=== PATIENT | female | born 1975 | race Caucasian/White ===

== ENCOUNTER 2021-08-31 00:30 | Inpatient (IN) | payer MEDICAID ==
[~2021-08-31] VITALS: Ht 170.2 cm; Wt 72.7 kg
[2021-08-31] MEDS ORDERED: ondansetron/PF 4mg/2ml inj IV ONE ×3 (02:05→04:50)
[2021-08-31] MEDS ORDERED: morphine 4 MG/ML inj SYRINge IV ONE ×2 (02:05→04:20)
[2021-08-31] MEDS ORDERED: normal saline 1000ml 1,000 ML IV ONE ×2 (02:05→04:30)
[2021-08-31 02:17] LABS: URINE HCG NEGATIVE (NEG)
[2021-08-31 02:47] LABS: CLARITY,URINE CLOUDY (Clear); COLOR,URINE YELLOW (Yellow); GLUCOSE, URINE NEGATIVE (Neg); KETONES,URINE 40 mg/dl (Neg); LEUKOCYTE ESTERASE ,URINE NEGATIVE (Neg); NITRITES, URINE NEGATIVE (Neg); OCCULT BLOOD,URINE NEGATIVE (Neg); PROTEIN,URINE 30 mg/dl (Neg); UROBILINOGEN,URINE 0.2 E.U/dL (0.2-1.0)
[2021-08-31 02:49] LABS: UA COLLECTION TYPE CLN CATCH MIDSTREAM
[2021-08-31 02:57] LABS: CAL OXALATE CRYSTALS 4+ /HPF (NEGATIVE)
[2021-08-31 02:58] LABS: AMORPHOUS URATES 4+; BACTERIA,URINE NONE SEEN /HPF (Neg); RBC,URINE NONE SEEN /HPF (0-2); WBC,URINE 0-4 /HPF (0-4)
[2021-08-31 02:59] LABS: MUCUS STRANDS MODERATE /LPF (Neg); SQUAMOUS EPITHELIAL CELL,UR MODERATE /LPF (FEW)
[2021-08-31 03:18] LABS: BASOPHILS % (AUTO) 0.9 % (0-1); EOSINOPHILS % (AUTO) 0.1 % (0-6); HEMATOCRIT 37.3 % (35.0-45.0); HEMOGLOBIN 12.5 g/dl (12.0-16.0); LYMPHOCYTES % (AUTO) 20.7 % (21-51); MEAN CORPUSCULAR HEMOGLOBIN 32.7 PG (27.0-31.0); MEAN CORPUSCULAR HGB CONC 33.5 g/dL (33.0-36.5); MEAN CORPUSCULAR VOLUME 97.7 FL (78-98); MONOCYTES # (AUTO) 0.4 X10'3 (0-0.9); NEUTROPHILS # (AUTO) 3.5 X10'3 (1.8-7.7); NEUTROPHILS % (AUTO) 69.3 % (42-75); PLATELET COUNT 272 X10'3 (140-440); RED BLOOD COUNT 3.82 X10'6 (4.20-5.60); RED CELL DISTRIBUTION WIDTH 14.8 % (11.5-14.5)
[2021-08-31 03:27] LABS: ALANINE AMINOTRANSFERASE 23 U/L (12-78); ALBUMIN 3.8 G/DL (3.4-5.0); ALBUMIN/GLOBULIN RATIO 1.1 (1.1-1.5); ALKALINE PHOSPHATASE 80 IU/L (46-116); ANION GAP 22 (8-16); ASPARTATE AMINO TRANSFERASE 19 U/L (10-37); BILIRUBIN,DIRECT 0.2 MG/DL (0-0.3); BILIRUBIN,TOTAL 0.7 MG/DL (0.1-1.0); BLOOD UREA NITROGEN 10 MG/DL (7-18); BUN/CREATININE RATIO 12.2 (6.6-38.0); CALCIUM 9.1 MG/DL (8.5-10.1); CHLORIDE 96 MMOL/L (99-107); CREATININE 0.82 MG/DL (0.40-0.90); GLUCOSE 311 MG/DL (70-104); LIPASE < 50 U/L (73-393); POTASSIUM 3.5 MMOL/L (3.5-5.1); SODIUM 134 MMOL/L (135-145); TOTAL CARBON DIOXIDE 16.5 MMOL/L (24-32); TOTAL PROTEIN 7.4 G/DL (6.4-8.2); eGFR 75 ML/MIN
[2021-08-31] MEDS ORDERED: iohexol 300mg/ml 100ml inj. ONE (03:42)
[2021-08-31] MEDS ORDERED: potassium Cl 40MEQ/1/2NS 520ml 520 ML IV PRN ×2 (04:35)
[2021-08-31] MEDS ORDERED: normal saline 1000ml 1,000 ML IV SCH (04:35)
[2021-08-31] MEDS ORDERED: sodium phosphate inj. 30 MMOL in dextrose 5%-water 250 ML IV PRN (04:35)
[2021-08-31] MEDS ORDERED: insulin regular, human U-100 3ml vial - multi-dose IV PRN (04:35)
[2021-08-31] MEDS ORDERED: potassium Cl 20 mEq SR tablet PO PRN ×4 (04:35→05:15)
[2021-08-31] MEDS ORDERED: potassium CL 20mEq in D5-1/2NS 1,000 ML IV PRN (04:35)
[2021-08-31] MEDS ORDERED: sodium bicarbonate (8.4%) inj. 100 MEQ in dextrose 5% water 500ml 500 ML IV PRN (04:35)
[2021-08-31] MEDS ORDERED: sodium phosphate inj. 15 MMOL in dextrose 5%-water 250 ML IV PRN (04:35)
[2021-08-31] MEDS ORDERED: sodium bicarbonate (8.4%) inj. 50 MEQ in dextrose 5% water 500ml 250 ML IV PRN (04:35)
[2021-08-31] MEDS ORDERED: Neutra Phos packet PO PRN (04:35)
[2021-08-31] MEDS: Insulin Reg/NS 100units/100mL 100 ML IV SCH ×2 (04:35→08:32)
[2021-08-31] MEDS: normal saline 1000ml 1,000 ML IV SCH ×6 (05:05→22:46)
[2021-08-31] MEDS ORDERED: magnesium 4gm in 100ml NS 100 ML IV PRN (05:15)
[2021-08-31] MEDS ORDERED: magnesium hydroxide 30ml (MOM) UD suspension PO PRN (05:15)
[2021-08-31] MEDS ORDERED: potassium CL 10mEq/100ml bag 100 ML IV PRN (05:15)
[2021-08-31] MEDS ORDERED: magnesium 2GM in 50ml NS 50 ML IV PRN (05:15)
[2021-08-31] MEDS ORDERED: magnesium Cl slow-release 64mg tablet PO PRN (05:15)
[2021-08-31] MEDS ORDERED: ondansetron inj. 24 MG in normal saline 250ml IV soln 228 ML IV SCH (05:40)
[2021-08-31] MEDS ORDERED: labetalol 20mg/4ml (5mg/ml) syringe IV ONE (05:50)
--- NOTE | 2021-08-31 06:30 | NUR ---
PER [employer]EIGN EXCHANGE POSITION CLERK RN NO INSULIN DRIP TO BE STARTED ON PT ORDERS FOR 3L OF FLUID AND IV INSULIN TO BE PLACED BY DR. KELLEY
--- NOTE | 2021-08-31 06:44 | NUR ---
BSG 342
--- NOTE | 2021-08-31 07:00 | NUR ---
ATTEMPTED TO CALL DR. KELLEY WITH NO ANSWER
--- NOTE | 2021-08-31 07:28 | NUR ---
DR. JAUREGUI PAGED FOR PT'S BS 342 AND NO ORDERS FOR INSULIN
[2021-08-31] MEDS: K and/or MAG REPLACEMENT MC SCH ×2 (08:00→19:06)
[2021-08-31] MEDS ORDERED: K and/or MAG REPLACEMENT MC SCH (08:00)
[2021-08-31] MEDS: docusate sod 100mg capsule PO SCH ×2 (08:00→19:34)
[2021-08-31] MEDS: heparin, porcine 5000 units/ml vial SQ SCH ×2 (08:00→19:33)
--- NOTE | 2021-08-31 08:15 | NUR ---
SPOKE WITH DR. JAUREGUI ORDERS TO START INSULIN DRIP GIVEN
[2021-08-31 10:51] LABS: ALBUMIN 3.6 G/DL (3.4-5.0); ANION GAP 17 (8-16); BLOOD UREA NITROGEN 7 MG/DL (7-18); CALCIUM 8.2 MG/DL (8.5-10.1); CHLORIDE 98 MMOL/L (99-107); CREATININE 0.87 MG/DL (0.40-0.90); GLUCOSE 262 MG/DL (70-104); MAGNESIUM 1.7 MG/DL (1.5-2.4); POTASSIUM 3.3 MMOL/L (3.5-5.1); SODIUM 137 MMOL/L (135-145); TOTAL CARBON DIOXIDE 22.3 MMOL/L (24-32); eGFR 70 ML/MIN
[2021-08-31] MEDS ORDERED: FERR325T29 PO (11:21)
[2021-08-31] MEDS ORDERED: PANT40TA54 PO (11:21)
[2021-08-31] MEDS ORDERED: LISI10TA27 PO (11:21)
[2021-08-31] MEDS ORDERED: LEVO88TA70 PO (11:21)
[2021-08-31] MEDS ORDERED: FOLI0.4T6 PO (11:21)
[2021-08-31] MEDS ORDERED: LAMO200T10 PO (11:21)
[2021-08-31] MEDS ORDERED: DULO60CA65 PO (11:21)
[2021-08-31 17:43] LABS: ALANINE AMINOTRANSFERASE 22 U/L (12-78); ALBUMIN 3.4 G/DL (3.4-5.0); ALKALINE PHOSPHATASE 78 IU/L (46-116); ANION GAP 9 (8-16); ASPARTATE AMINO TRANSFERASE 21 U/L (10-37); BILIRUBIN,TOTAL 0.4 MG/DL (0.1-1.0); BLOOD UREA NITROGEN 5 MG/DL (7-18); CALCIUM 8.5 MG/DL (8.5-10.1); CHLORIDE 103 MMOL/L (99-107); CREATININE 0.71 MG/DL (0.40-0.90); GLUCOSE 183 MG/DL (70-104); POTASSIUM 3.9 MMOL/L (3.5-5.1); SODIUM 137 MMOL/L (135-145); TOTAL CARBON DIOXIDE 25.3 MMOL/L (24-32); TOTAL PROTEIN 6.9 G/DL (6.4-8.2); eGFR 89 ML/MIN
--- NOTE | 2021-08-31 18:08 | NUR ---
PER DR BETTENCOURT CONTINUE INSULIN DRIP UNTIL MIDNIGHT SEND ANOTHER CMP IS ANION GAP IN RANGE DC INSULIN DRIP PER DR BETTENCOURT RESCHEDULE PTS HOME BP MEDICATION TO NOW
[2021-08-31] MEDS ORDERED: lisinopril 10 MG tablet PO ONE (18:10)
[2021-08-31] MEDS: morphine 2 MG/ML inj. syringe IV PRN ×2 (19:32→22:47)
[2021-08-31] MEDS: ferrous sulfate 325mg tablet PO SCH (19:33)
[2021-08-31] MEDS: duloxetine 30mg CAPSULE.DR PO SCH (19:33)
[2021-08-31] MEDS ORDERED: dextrose ORAL solution 15 GM/59 ML bottle PO PRN (21:25)
[2021-08-31] MEDS ORDERED: glucagon, human recombinant 1mg kit SUBCUT PRN (21:25)
[2021-08-31] MEDS ORDERED: dextrose 50%-water 50ml dispensing syringe IV PRN ×2 (21:25)
[2021-08-31] MEDS ORDERED: MESSAGE TO PHARMACY PO ONE (21:25)
--- NOTE | 2021-08-31 21:49 | NUR ---
22g IV in LUE infiltrated. Cannula removed. Area directly underneath IV site swollen, soft, non tender. Verbal order from MD to stop insulin, Dextrose, and to start NS at 100 ml/hr and glycemic protocol.
[2021-08-31 22:30] VITALS: BP 175/105
[2021-08-31] MEDS: enalaprilat dihydrate 2.5mg/2ml vial IV PRN (22:46)
--- NOTE | 2021-09-01 00:06 | NUR ---
PT ADMITTED TO UNIT W/ ZOFRAN DRIP. ZOFRAN CONTINUED PER PROTOCOL. PT WAS ORDERED NS AT 100ML/HR BUT NO IV ACCESS WAS ABLE TO BE INITIATED DUE TO PT BEING A HARD STICK. PO FLUIDS ENCOURAGED. WAS INFORMED AND HAD NO NEW ORDERS. PT CURRENTLY IN BED RESTING. A/OX4 TO STIMULI. RESP EVEN AND NONLABORED W/ EQUAL CHEST EXPANSION BILATERALLY ON ROOM AIR. HEART SOUNDS NORMAL TO AUSCULTATION, S1/S2 NOTED, TACHY. BP ELEVATED AND PRN HTN MANAGEMENT MEDICATION ADMINISTERED ORDERED. PT C/O PAIN ALSO AT 9/10 TO ABD AND PRN PAIN MANAGEMENT MEDICATION ADMINISTERED. MRSA OF NARES SWAB COLLECTED AND TAKEN TO LAB. ALL ABD QUADRANTS NORMOACTIVE X4. ABD SOFT, LOOSE SKIN NOTED. SKIN INTACT W/ BLANCHABLE REDNESS NOTED TO JOHN ANUS. REDNESS AND DRYNESS NOTED TO BILATERAL ELBOWS. NO S/S OF ACUTE DISTRESS NOTED. WILL CONTINUE TO OBSERVE.
[2021-09-01] MEDS: morphine 2 MG/ML inj. syringe IV PRN ×5 (02:19→22:19)
[2021-09-01 02:30] VITALS: BP 107/72
[2021-09-01 06:00] VITALS: BP 190/99
[2021-09-01 06:53] LABS: BASOPHILS % (AUTO) 0.5 % (0-1); EOSINOPHILS % (AUTO) 0.4 % (0-6); HEMATOCRIT 40.1 % (35.0-45.0); HEMOGLOBIN 13.2 g/dl (12.0-16.0); LYMPHOCYTES # (AUTO) 1.4 X10'3 (1.1-4.8); LYMPHOCYTES % (AUTO) 28.7 % (21-51); MEAN CORPUSCULAR HEMOGLOBIN 32.7 PG (27.0-31.0); MEAN CORPUSCULAR VOLUME 99.2 FL (78-98); MONOCYTES # (AUTO) 0.4 X10'3 (0-0.9); MONOCYTES % (AUTO) 7.2 % (2-12); NEUTROPHILS # (AUTO) 3.2 X10'3 (1.8-7.7); NEUTROPHILS % (AUTO) 63.2 % (42-75); PLATELET COUNT 248 X10'3 (140-440); RED BLOOD COUNT 4.04 X10'6 (4.20-5.60); RED CELL DISTRIBUTION WIDTH 15.1 % (11.5-14.5)
[2021-09-01 07:13] LABS: ALANINE AMINOTRANSFERASE 17 U/L (12-78); ALBUMIN 3.5 G/DL (3.4-5.0); ALBUMIN/GLOBULIN RATIO 0.9 (1.1-1.5); ALKALINE PHOSPHATASE 84 IU/L (46-116); ANION GAP 16 (8-16); ASPARTATE AMINO TRANSFERASE 25 U/L (10-37); BILIRUBIN,TOTAL 0.7 MG/DL (0.1-1.0); BLOOD UREA NITROGEN 6 MG/DL (7-18); CHLORIDE 98 MMOL/L (99-107); CREATININE 0.75 MG/DL (0.40-0.90); GLUCOSE 380 MG/DL (70-104); POTASSIUM 4.1 MMOL/L (3.5-5.1); SODIUM 134 MMOL/L (135-145); TOTAL CARBON DIOXIDE 19.9 MMOL/L (24-32); TOTAL PROTEIN 7.3 G/DL (6.4-8.2); eGFR 84 ML/MIN
[2021-09-01] MEDS: normal saline 1000ml 1,000 ML IV SCH ×2 (07:25→18:00)
[2021-09-01] MEDS: K and/or MAG REPLACEMENT MC SCH ×2 (08:00→20:00)
[2021-09-01] MEDS: enalaprilat dihydrate 2.5mg/2ml vial IV PRN ×2 (08:04→14:46)
[2021-09-01] MEDS: levoTHYROXINE 88mcg tablet PO SCH (08:09)
[2021-09-01] MEDS: ferrous sulfate 325mg tablet PO SCH ×2 (08:10→19:11)
[2021-09-01] MEDS: docusate sod 100mg capsule PO SCH ×2 (08:10→19:11)
[2021-09-01] MEDS: duloxetine 30mg CAPSULE.DR PO SCH ×2 (08:10→19:11)
[2021-09-01] MEDS: lisinopril 10 MG tablet PO SCH (08:10)
[2021-09-01] MEDS: pantoprazole 40mg Tablet.DR PO SCH (08:11)
[2021-09-01] MEDS: folic acid 1mg tablet PO SCH (08:11)
[2021-09-01] MEDS: lamoTRIgine 100mg tablet PO SCH (08:11)
[2021-09-01] MEDS: heparin, porcine 5000 units/ml vial SQ SCH ×2 (08:13→19:12)
[2021-09-01] MEDS: insulin Lispro (HumaLOG) vial - multi-dose SQ SCH ×3 (09:28→22:32)
[2021-09-01] MEDS: ondansetron/PF 4mg/2ml inj IV PRN ×2 (09:29→19:11)
--- NOTE | 2021-09-01 10:09 | NUR ---
Patient in room PCU 3012. I have received report from Jorge JENSEN and had the opportunity to ask questions and assume patient care.
[2021-09-01 11:00] VITALS: BP 107/76
--- NOTE | 2021-09-01 11:59 | NUR ---
Initial: Pt admitted w/ DKA per EMR, also has hx of DKA. 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 Provided pt w/ written and verbal DM education w/ RD contact info. Encouraged pt to further discuss w/ MD regarding managing insulin. Pt currently on Clear liquid diet pending PO documentation. Recommend advancing to CCHO diet as tolerated per MD. No nutrition intervention implemented at this time, will continue to monitor. Recs: 1. Advance as medically indicated to CCHO diet 2. Monitor need for ONS 3. Bowel care per rx 4. Weekly wt Addendum: 09/01/21 at [address] Amended: Links added.
[2021-09-01] MEDS: mag hydrox/Alum hydrox/simeth 30ml oral suspension PO PRN (14:33)
[2021-09-01 15:00] VITALS: BP 172/110
[2021-09-01 18:00] VITALS: BP 126/83
--- NOTE | 2021-09-01 18:51 | NUR ---
Problems reprioritized. Patient report given, questions answered & plan of care reviewed with Amaya JENSEN.
[2021-09-01 22:00] VITALS: BP 99/64
[2021-09-01] MEDS: insulin glargine (Lantus) pen - multi-dose SQ SCH (22:30)
[2021-09-02 02:00] VITALS: BP 100/60
[2021-09-02] MEDS: morphine 2 MG/ML inj. syringe IV PRN ×2 (03:19→07:46)
[2021-09-02] MEDS: normal saline 1000ml 1,000 ML IV SCH ×2 (03:25→13:25)
[2021-09-02 06:00] VITALS: BP 111/61
--- NOTE | 2021-09-02 06:16 | NUR ---
Problems reprioritized. Patient report given, questions answered & plan of care reviewed with Cristiana JENSEN .
[2021-09-02 06:32] LABS: BASOPHILS % (AUTO) 0.6 % (0-1); EOSINOPHILS % (AUTO) 0.8 % (0-6); HEMATOCRIT 35.1 % (35.0-45.0); HEMOGLOBIN 11.9 g/dl (12.0-16.0); LYMPHOCYTES # (AUTO) 1.7 X10'3 (1.1-4.8); LYMPHOCYTES % (AUTO) 37.1 % (21-51); MEAN CORPUSCULAR HEMOGLOBIN 33.3 PG (27.0-31.0); MEAN PLATELET VOLUME 6.8 FL (7.4-10.4); MONOCYTES # (AUTO) 0.4 X10'3 (0-0.9); MONOCYTES % (AUTO) 8.3 % (2-12); NEUTROPHILS # (AUTO) 2.4 X10'3 (1.8-7.7); NEUTROPHILS % (AUTO) 53.2 % (42-75); PLATELET COUNT 242 X10'3 (140-440); RED BLOOD COUNT 3.58 X10'6 (4.20-5.60); RED CELL DISTRIBUTION WIDTH 14.7 % (11.5-14.5); WHITE BLOOD COUNT 4.5 X10'3 (4.5-11.0)
--- NOTE | 2021-09-02 06:32 | NUR ---
Patient in room PCU 3012. I have received report from Amaya JENSEN and had the opportunity to ask questions and assume patient care.
[2021-09-02 06:44] LABS: ALANINE AMINOTRANSFERASE 14 U/L (12-78); ALBUMIN 2.9 G/DL (3.4-5.0); ALBUMIN/GLOBULIN RATIO 0.9 (1.1-1.5); ALKALINE PHOSPHATASE 67 IU/L (46-116); ANION GAP 10 (8-16); ASPARTATE AMINO TRANSFERASE 13 U/L (10-37); BILIRUBIN,TOTAL 0.3 MG/DL (0.1-1.0); BLOOD UREA NITROGEN 8 MG/DL (7-18); BUN/CREATININE RATIO 10.8 (6.6-38.0); CALCIUM 8.6 MG/DL (8.5-10.1); CHLORIDE 104 MMOL/L (99-107); CREATININE 0.74 MG/DL (0.40-0.90); GLUCOSE 241 MG/DL (70-104); POTASSIUM 3.5 MMOL/L (3.5-5.1); SODIUM 138 MMOL/L (135-145); TOTAL CARBON DIOXIDE 24.4 MMOL/L (24-32); eGFR 85 ML/MIN
[2021-09-02] MEDS: ondansetron/PF 4mg/2ml inj IV PRN ×2 (07:47→13:19)
[2021-09-02] MEDS: heparin, porcine 5000 units/ml vial SQ SCH ×2 (07:50→19:29)
[2021-09-02] MEDS: ferrous sulfate 325mg tablet PO SCH ×2 (07:52→19:28)
[2021-09-02] MEDS: folic acid 1mg tablet PO SCH (07:52)
[2021-09-02] MEDS: duloxetine 30mg CAPSULE.DR PO SCH ×2 (07:52→19:28)
[2021-09-02] MEDS: pantoprazole 40mg Tablet.DR PO SCH ×2 (07:53→19:28)
[2021-09-02] MEDS: lisinopril 10 MG tablet PO SCH (07:53)
[2021-09-02] MEDS: docusate sod 100mg capsule PO SCH ×2 (07:53→19:28)
[2021-09-02] MEDS: levoTHYROXINE 88mcg tablet PO SCH (07:53)
[2021-09-02] MEDS: lamoTRIgine 100mg tablet PO SCH (07:54)
[2021-09-02] MEDS: K and/or MAG REPLACEMENT MC SCH ×2 (08:00→20:00)
[2021-09-02] MEDS: insulin Lispro (HumaLOG) vial - multi-dose SQ SCH ×3 (09:31→23:39)
[2021-09-02] MEDS: mag hydrox/Alum hydrox/simeth 30ml oral suspension PO PRN (09:34)
[2021-09-02 11:00] VITALS: BP 189/123
[2021-09-02] MEDS: enalaprilat dihydrate 2.5mg/2ml vial IV PRN ×2 (11:45→11:46)
[2021-09-02] MEDS ORDERED: hyDRALAzine 10mg tablet PO SCH (12:20)
[2021-09-02] MEDS: HYDROcodone/acetaminophen 5mg/325mg tablet PO PRN ×2 (13:23→19:28)
[2021-09-02] MEDS: hydrALAZINE 25 MG tablet PO SCH ×2 (13:23→19:29)
[2021-09-02 13:57] LABS: URINE AMPHETAMINE SCREEN NEGATIVE (Neg); URINE BARBITUATE SCREEN NEGATIVE (Neg); URINE BENZODIAZEPINES SCREEN NEGATIVE (Neg); URINE CANNABINOID SCREEN NEGATIVE (Neg); URINE COCAINE SCREEN NEGATIVE (Neg); URINE METHADONE SCREEN NEGATIVE (Neg); URINE OPIATE SCREEN POSITIVE (Neg); URINE PHENCYCLIDINE SCREEN NEGATIVE (Neg)
[2021-09-02 15:00] VITALS: BP 115/79
[2021-09-02 18:00] VITALS: BP 103/64
--- NOTE | 2021-09-02 18:30 | NUR ---
Problems reprioritized. Patient report given, questions answered & plan of care reviewed with Amaya JENSEN.
[2021-09-02 22:00] VITALS: BP 114/76
[2021-09-02] MEDS: insulin glargine (Lantus) pen - multi-dose SQ SCH (23:37)
[2021-09-03] VITALS (9 sets, daily range): BP systolic 109–215; BP diastolic 59–120
[2021-09-03] MEDS: HYDROcodone/acetaminophen 5mg/325mg tablet PO PRN ×4 (02:27→20:15)
[2021-09-03] MEDS: normal saline 1000ml 1,000 ML IV SCH ×2 (02:31→20:37)
[2021-09-03 07:00] LABS: BASOPHILS % (AUTO) 0.8 % (0-1); EOSINOPHILS % (AUTO) 1.2 % (0-6); HEMATOCRIT 34.5 % (35.0-45.0); HEMOGLOBIN 11.6 g/dl (12.0-16.0); LYMPHOCYTES # (AUTO) 1.6 X10'3 (1.1-4.8); MEAN CORPUSCULAR HEMOGLOBIN 33.1 PG (27.0-31.0); MEAN CORPUSCULAR HGB CONC 33.7 g/dL (33.0-36.5); MEAN CORPUSCULAR VOLUME 98.3 FL (78-98); MEAN PLATELET VOLUME 6.8 FL (7.4-10.4); MONOCYTES # (AUTO) 0.3 X10'3 (0-0.9); MONOCYTES % (AUTO) 8.1 % (2-12); NEUTROPHILS # (AUTO) 1.8 X10'3 (1.8-7.7); NEUTROPHILS % (AUTO) 47.9 % (42-75); PLATELET COUNT 213 X10'3 (140-440); RED BLOOD COUNT 3.51 X10'6 (4.20-5.60); RED CELL DISTRIBUTION WIDTH 14.8 % (11.5-14.5); WHITE BLOOD COUNT 3.8 X10'3 (4.5-11.0)
--- NOTE | 2021-09-03 07:00 | NUR ---
Patient in room PCU 3012. I have received report from Amaya and had the opportunity to ask questions and assume patient care.
[2021-09-03 07:43] LABS: ALANINE AMINOTRANSFERASE 14 U/L (12-78); ALBUMIN 2.8 G/DL (3.4-5.0); ALBUMIN/GLOBULIN RATIO 0.9 (1.1-1.5); ALKALINE PHOSPHATASE 64 IU/L (46-116); ANION GAP 8 (8-16); ASPARTATE AMINO TRANSFERASE 9 U/L (10-37); BILIRUBIN,TOTAL 0.2 MG/DL (0.1-1.0); BLOOD UREA NITROGEN 12 MG/DL (7-18); BUN/CREATININE RATIO 16.4 (6.6-38.0); CALCIUM 8.7 MG/DL (8.5-10.1); CHLORIDE 106 MMOL/L (99-107); CREATININE 0.73 MG/DL (0.40-0.90); GLUCOSE 102 MG/DL (70-104); POTASSIUM 3.6 MMOL/L (3.5-5.1); SODIUM 139 MMOL/L (135-145); TOTAL CARBON DIOXIDE 24.8 MMOL/L (24-32); TOTAL PROTEIN 5.8 G/DL (6.4-8.2); eGFR 86 ML/MIN
[2021-09-03] MEDS: K and/or MAG REPLACEMENT MC SCH ×2 (08:00→20:00)
[2021-09-03] MEDS: ferrous sulfate 325mg tablet PO SCH ×2 (08:54→20:15)
[2021-09-03] MEDS: folic acid 1mg tablet PO SCH (08:54)
[2021-09-03] MEDS: duloxetine 30mg CAPSULE.DR PO SCH ×2 (08:54→20:15)
[2021-09-03] MEDS: docusate sod 100mg capsule PO SCH ×2 (08:54→20:15)
[2021-09-03] MEDS: hydrALAZINE 25 MG tablet PO SCH ×2 (08:54→20:16)
[2021-09-03] MEDS: pantoprazole 40mg Tablet.DR PO SCH (08:55)
[2021-09-03] MEDS: levoTHYROXINE 88mcg tablet PO SCH (08:55)
[2021-09-03] MEDS: lamoTRIgine 100mg tablet PO SCH (08:55)
[2021-09-03] MEDS: heparin, porcine 5000 units/ml vial SQ SCH ×2 (08:56→20:14)
[2021-09-03] MEDS: lisinopril 20mg tablet PO SCH (08:56)
[2021-09-03] MEDS: insulin Lispro (HumaLOG) vial - multi-dose SQ SCH (09:13)
[2021-09-03] MEDS ORDERED: LISI20TA28 PO (10:12)
[2021-09-03] MEDS ORDERED: HYDR-4069 PO (10:12)
[2021-09-03] MEDS ORDERED: PANT40TA54 PO (10:12)
[2021-09-03] MEDS: ondansetron/PF 4mg/2ml inj IV PRN ×2 (13:32→20:14)
--- NOTE | 2021-09-03 14:56 | NUR ---
Elevated BP PAGER ID: [phone] MESSAGE: Kamilah Merritt BP 210/118 (taken multiple times). Dominique GOMEZ (covering for Mirian JENSEN)
[2021-09-03] MEDS: enalaprilat dihydrate 2.5mg/2ml vial IV PRN (15:07)
--- NOTE | 2021-09-03 15:10 | NUR ---
Elevated BP Verbal order to give vasotrec PRN for HTN per Dr. Arreaga
--- NOTE | 2021-09-03 15:13 | NUR ---
Elevated BP Report about BP complications and abdominal pain reported to primary RN Claritza Vela RN to now take over care of patient now that she's back from lunch break.
[2021-09-03] MEDS ORDERED: hydrALAZINE 20mg/ml inj. IV PRN (16:25)
[2021-09-03] MEDS ORDERED: hydrALAZINE 20mg/ml inj. IV ONE (16:25)
[2021-09-03] MEDS ORDERED: amLODIPine 5mg tablet PO ONE (16:25)
[2021-09-03] MEDS: pantoprazole 40MG/NS 100ML BAG 100 ML IV SCH ×2 (17:11→20:16)
[2021-09-03] MEDS: metoprolol succinate 25mg (24-HOUR) SR. Tablet PO SCH (17:12)
--- NOTE | 2021-09-03 19:33 | NUR ---
Fence Installer Foreman spoke with Dr. Arreaga at 1620 about patient's high bp. New order noted and implemented as ordered. Receiving nurse made aware to follow up.
--- NOTE | 2021-09-03 19:34 | NUR ---
Problems reprioritized. Patient report given, questions answered & plan of care reviewed with Amaya.
[2021-09-03] MEDS: insulin glargine (Lantus) pen - multi-dose SQ SCH (21:00)
[2021-09-04] VITALS (8 sets, daily range): BP systolic 74–111; BP diastolic 45–76
[2021-09-04] MEDS: HYDROcodone/acetaminophen 5mg/325mg tablet PO PRN (03:30)
[2021-09-04 06:56] LABS: BASOPHILS % (AUTO) 0.5 % (0-1); EOSINOPHILS % (AUTO) 0.5 % (0-6); HEMATOCRIT 36.6 % (35.0-45.0); HEMOGLOBIN 12.5 g/dl (12.0-16.0); LYMPHOCYTES # (AUTO) 1.2 X10'3 (1.1-4.8); LYMPHOCYTES % (AUTO) 30.5 % (21-51); MEAN CORPUSCULAR HEMOGLOBIN 33.5 PG (27.0-31.0); MEAN CORPUSCULAR HGB CONC 34.1 g/dL (33.0-36.5); MEAN CORPUSCULAR VOLUME 98.4 FL (78-98); MONOCYTES # (AUTO) 0.4 X10'3 (0-0.9); MONOCYTES % (AUTO) 9.1 % (2-12); NEUTROPHILS # (AUTO) 2.4 X10'3 (1.8-7.7); NEUTROPHILS % (AUTO) 59.4 % (42-75); PLATELET COUNT 243 X10'3 (140-440); RED BLOOD COUNT 3.71 X10'6 (4.20-5.60); RED CELL DISTRIBUTION WIDTH 14.3 % (11.5-14.5); WHITE BLOOD COUNT 4.1 X10'3 (4.5-11.0)
--- NOTE | 2021-09-04 06:59 | NUR ---
Problems reprioritized. Patient report given, questions answered & plan of care reviewed with Mirian JENSEN .
[2021-09-04 07:38] LABS: ALANINE AMINOTRANSFERASE 16 U/L (12-78); ALBUMIN/GLOBULIN RATIO 0.9 (1.1-1.5); ALKALINE PHOSPHATASE 71 IU/L (46-116); ANION GAP 12 (8-16); ASPARTATE AMINO TRANSFERASE 17 U/L (10-37); BILIRUBIN,TOTAL 0.4 MG/DL (0.1-1.0); BLOOD UREA NITROGEN 10 MG/DL (7-18); BUN/CREATININE RATIO 11.8 (6.6-38.0); CALCIUM 8.5 MG/DL (8.5-10.1); CHLORIDE 95 MMOL/L (99-107); CREATININE 0.85 MG/DL (0.40-0.90); SODIUM 130 MMOL/L (135-145); TOTAL CARBON DIOXIDE 22.9 MMOL/L (24-32); TOTAL PROTEIN 6.3 G/DL (6.4-8.2); eGFR 72 ML/MIN
[2021-09-04 07:55] LABS: GLUCOSE 621 MG/DL (70-104)
[2021-09-04] MEDS: K and/or MAG REPLACEMENT MC SCH ×2 (08:00→20:00)
[2021-09-04] MEDS: metoprolol succinate 25mg (24-HOUR) SR. Tablet PO SCH (08:00)
[2021-09-04] MEDS: lisinopril 20mg tablet PO SCH (08:00)
[2021-09-04] MEDS ORDERED: amLODIPine 5mg tablet PO SCH (08:00)
--- NOTE | 2021-09-04 08:04 | NUR ---
Made aware by Melania, lab at 0754 that patient has a blood glucose-621 for blood drawn at 0620. Blood sugar check at 0700 reads-508mg/dl and 579mg/dl. Dr. Arreaga paged for a return call. Addendum: 09/04/21 at 1934 by Cassy Melgar RN Spoke with Dr. Arreaga, X 1 order received at 0825 to administer Humalog 35 units for blood sugar-508/579mg/dl. Blood sugar rechecked at 0957-446mg/dl. Order received to administer Humalog 25 unit at 1115. 1200 blood sugar recheck-186 mg/dl. Provider made aware.
[2021-09-04] MEDS ORDERED: insulin Lispro (HumaLOG) vial - multi-dose SQ SCH (08:25)
[2021-09-04] MEDS: pantoprazole 40MG/NS 100ML BAG 100 ML IV SCH (08:32)
[2021-09-04] MEDS: lamoTRIgine 100mg tablet PO SCH (08:32)
[2021-09-04] MEDS: heparin, porcine 5000 units/ml vial SQ SCH ×2 (08:32→20:19)
[2021-09-04] MEDS: ferrous sulfate 325mg tablet PO SCH ×2 (08:33→20:18)
[2021-09-04] MEDS: folic acid 1mg tablet PO SCH (08:33)
[2021-09-04] MEDS: docusate sod 100mg capsule PO SCH ×2 (08:33→20:19)
[2021-09-04] MEDS: duloxetine 30mg CAPSULE.DR PO SCH ×2 (08:33→20:18)
[2021-09-04] MEDS: levoTHYROXINE 88mcg tablet PO SCH (08:33)
[2021-09-04] MEDS: hydrALAZINE 25 MG tablet PO SCH ×2 (08:45→20:21)
[2021-09-04] MEDS ORDERED: insulin Lispro (HumaLOG) vial - multi-dose SQ ONE (11:15)
[2021-09-04] MEDS: insulin Lispro (HumaLOG) vial - multi-dose SQ SCH ×2 (13:08→23:01)
[2021-09-04] MEDS: dextrose ORAL solution 15 GM/59 ML bottle PO PRN (14:49)
[2021-09-04] MEDS ORDERED: normal saline 1000ml 1,000 ML IV ONE (15:25)
--- NOTE | 2021-09-04 17:37 | NUR ---
New order received from Dr. Ribera and implemented for NS bolus for bp-84/45. Br. Ribera made aware of post bp-82/54 after NS bolus. Order received and implemented to increase NS-100ml/hr, patient's bp meds will be reevaluated per provider. Dr. ribera also made aware that patient's blood sugar check at 1449-28mg/dl. X2 glucose shot administered per protocol, recheck blood sugar at 1555-59mg/dl. Lab blood work ordered for glucose check called in by lab at 1637 was 44mg/dl. Blood sugar rechecked at 1650-89mg/d/. Nursing staff will continue to monitor patient.
[2021-09-04] MEDS: normal saline 1000ml 1,000 ML IV SCH (18:33)
[2021-09-04] MEDS: acetaminophen 325mg tablet PO PRN (18:34)
[2021-09-04] MEDS: diatr meglu/diatrizoate 30ml oral sol.-(3 dose) bottle PO SCH (21:52)
[2021-09-04] MEDS: insulin glargine (Lantus) pen - multi-dose SQ SCH (23:00)
[2021-09-05 00:03] LABS: URINE AMPHETAMINE SCREEN NEGATIVE (Neg); URINE BARBITUATE SCREEN NEGATIVE (Neg); URINE BENZODIAZEPINES SCREEN NEGATIVE (Neg); URINE CANNABINOID SCREEN NEGATIVE (Neg); URINE COCAINE SCREEN NEGATIVE (Neg); URINE METHADONE SCREEN NEGATIVE (Neg); URINE OPIATE SCREEN NEGATIVE (Neg); URINE PHENCYCLIDINE SCREEN NEGATIVE (Neg)
[2021-09-05] MEDS: pantoprazole 40MG/NS 100ML BAG 100 ML IV SCH ×2 (00:42→08:26)
[2021-09-05 02:00] VITALS: BP 115/70
[2021-09-05] MEDS: normal saline 1000ml 1,000 ML IV SCH (04:45)
[2021-09-05 06:40] LABS: BASOPHILS % (AUTO) 0.7 % (0-1); EOSINOPHILS % (AUTO) 1.4 % (0-6); HEMATOCRIT 34.1 % (35.0-45.0); HEMOGLOBIN 11.6 g/dl (12.0-16.0); LYMPHOCYTES # (AUTO) 1.5 X10'3 (1.1-4.8); LYMPHOCYTES % (AUTO) 40.4 % (21-51); MEAN CORPUSCULAR HEMOGLOBIN 33.4 PG (27.0-31.0); MEAN CORPUSCULAR VOLUME 98.2 FL (78-98); MEAN PLATELET VOLUME 7.1 FL (7.4-10.4); MONOCYTES # (AUTO) 0.3 X10'3 (0-0.9); MONOCYTES % (AUTO) 9.3 % (2-12); NEUTROPHILS # (AUTO) 1.7 X10'3 (1.8-7.7); NEUTROPHILS % (AUTO) 48.2 % (42-75); PLATELET COUNT 222 X10'3 (140-440); RED BLOOD COUNT 3.47 X10'6 (4.20-5.60); RED CELL DISTRIBUTION WIDTH 15.1 % (11.5-14.5); WHITE BLOOD COUNT 3.6 X10'3 (4.5-11.0)
--- NOTE | 2021-09-05 06:46 | NUR ---
Problems reprioritized. Patient report given, questions answered & plan of care reviewed with Deepthi JENSEN .
[2021-09-05 06:59] LABS: ALANINE AMINOTRANSFERASE 14 U/L (12-78); ALBUMIN 2.7 G/DL (3.4-5.0); ALBUMIN/GLOBULIN RATIO 0.9 (1.1-1.5); ALKALINE PHOSPHATASE 61 IU/L (46-116); ANION GAP 9 (8-16); ASPARTATE AMINO TRANSFERASE 14 U/L (10-37); BILIRUBIN,TOTAL 0.3 MG/DL (0.1-1.0); BLOOD UREA NITROGEN 14 MG/DL (7-18); BUN/CREATININE RATIO 17.3 (6.6-38.0); CALCIUM 8.4 MG/DL (8.5-10.1); CHLORIDE 105 MMOL/L (99-107); CREATININE 0.81 MG/DL (0.40-0.90); GLUCOSE 255 MG/DL (70-104); PHOSPHORUS 4.4 MG/DL (2.3-4.5); POTASSIUM 4.1 MMOL/L (3.5-5.1); SODIUM 138 MMOL/L (135-145); TOTAL CARBON DIOXIDE 23.7 MMOL/L (24-32); TOTAL PROTEIN 5.7 G/DL (6.4-8.2); eGFR 76 ML/MIN
[2021-09-05 07:00] VITALS: BP 124/73
[2021-09-05] MEDS: diatr meglu/diatrizoate 30ml oral sol.-(3 dose) bottle PO SCH (07:00)
--- NOTE | 2021-09-05 07:00 | NUR ---
Patient in room PCU 3012. I have received report from Amaya JENSEN and had the opportunity to ask questions and assume patient care.
[2021-09-05] MEDS ORDERED: lisinopril 20mg tablet PO SCH (08:00)
[2021-09-05] MEDS: K and/or MAG REPLACEMENT MC SCH (08:00)
[2021-09-05] MEDS: docusate sod 100mg capsule PO SCH (08:24)
[2021-09-05] MEDS: metoprolol succinate 25mg (24-HOUR) SR. Tablet PO SCH (08:24)
[2021-09-05] MEDS: ferrous sulfate 325mg tablet PO SCH (08:24)
[2021-09-05] MEDS: levoTHYROXINE 88mcg tablet PO SCH (08:24)
[2021-09-05] MEDS: lamoTRIgine 100mg tablet PO SCH (08:24)
[2021-09-05] MEDS: duloxetine 30mg CAPSULE.DR PO SCH (08:24)
[2021-09-05] MEDS: folic acid 1mg tablet PO SCH (08:25)
[2021-09-05] MEDS: heparin, porcine 5000 units/ml vial SQ SCH (08:26)
[2021-09-05] MEDS: hydrALAZINE 25 MG tablet PO SCH (08:27)
[2021-09-05] MEDS: insulin Lispro (HumaLOG) vial - multi-dose SQ SCH ×2 (08:46→13:24)
[2021-09-05] MEDS: acetaminophen 325mg tablet PO PRN (09:48)
[2021-09-05] MEDS ORDERED: iohexol 300mg/ml 100ml inj. ONE (10:17)
[2021-09-05 11:00] VITALS: BP 116/70
--- NOTE | 2021-09-05 14:43 | NUR ---
discharge instructions were given and explained to patient prior to discharge. iv discontinued with cannula tip intact.
[2021-09-05 15:00] VITALS: BP 126/64
[2021-09-05] MEDS: dextrose ORAL solution 15 GM/59 ML bottle PO PRN (15:56)
--- NOTE | 2021-09-05 16:10 | NUR ---
patient given a dose of oral glucose and repeat blood sugar is 100, given 2 orange juices to drink. patient verbalized that she feels much better and is now ready to be discharged.
== END 2021-09-05 17:15 | disposition home or self-care (01) | DRG 420 ==
LOC: ER 00:31 → ED HOLD 05:15 → EDBEDREQ 21:19 → PCU 3S 21:40
PROVIDERS: ADMIT Internal Medicine; ATTEND Internal Medicine
PROC: BW211ZZ Computerized Tomography (CT Scan) of Abdomen and Pelvis using Low Osmolar Contrast (ICD-10-PCS; principal; 2021-08-31)
PROC: BW251ZZ Computerized Tomography (CT Scan) of Chest, Abdomen and Pelvis using Low Osmolar Contrast (ICD-10-PCS; 2021-09-05)
DX: E10.10 Type 1 diabetes mellitus with ketoacidosis without coma (principal); E03.9 Hypothyroidism, unspecified; I10 Essential (primary) hypertension; F31.9 Bipolar disorder, unspecified; I16.0 Hypertensive urgency; K21.9 Gastro-esophageal reflux disease without esophagitis; Z79.899 Other long term (current) drug therapy; Z98.84 Bariatric surgery status; Z90.49 Acquired absence of other specified parts of digestive tract
CPT/HCPCS: 36415; 70450; 71045; 74177; 80048; 80053; 80076; 80305; 81001; 81025; 82800; 82947; 82948; 83036; 83690; 83735; 84100; 84145; 84244; 84443; 85025; 87081; 93306; 93975; 96361; 96374; 96375; 96376; 99291; C9113; G0378; J0360; J1644; J1815; J2270; J2405; J3480; J3490; J7030; J7050; Q9963; Q9967

== ENCOUNTER 2022-05-10 19:28 | Emergency (ER) | payer MEDICAID ==
[~2022-05-10] VITALS: Ht 170.2 cm; Wt 86.4 kg
[~2022-05-10 19:28] MED LIST: DULO60CA65 PO; FERR325T29 PO; FOLI0.4T6 PO; HYDR-4069 PO; LAMO200T10 PO; LEVO88TA70 PO; LISI10TA27 PO; LISI20TA28 PO; PANT40TA54 PO
[2022-05-10 22:12] LABS: BASOPHILS % (AUTO) 0.3 % (0-1); EOSINOPHILS % (AUTO) 0 % (0-6); HEMOGLOBIN 14.8 g/dl (12.0-16.0); LYMPHOCYTES # (AUTO) 1.2 X10'3 (1.1-4.8); LYMPHOCYTES % (AUTO) 10.2 % (21-51); MEAN CORPUSCULAR HEMOGLOBIN 32.2 PG (27.0-31.0); MEAN CORPUSCULAR HGB CONC 33.6 g/dL (33.0-36.5); MEAN CORPUSCULAR VOLUME 95.9 FL (78-98); MEAN PLATELET VOLUME 7.6 FL (7.4-10.4); MONOCYTES # (AUTO) 0.5 X10'3 (0-0.9); MONOCYTES % (AUTO) 4.3 % (2-12); NEUTROPHILS # (AUTO) 9.6 X10'3 (1.8-7.7); NEUTROPHILS % (AUTO) 85.2 % (42-75); PLATELET COUNT 296 X10'3 (140-440); RED BLOOD COUNT 4.59 X10'6 (4.20-5.60); RED CELL DISTRIBUTION WIDTH 12.6 % (11.5-14.5); WHITE BLOOD COUNT 11.2 X10'3 (4.5-11.0)
[2022-05-10] MEDS ORDERED: metoclopramide 5 mg/ml inj IV ONE (22:35)
[2022-05-10] MEDS ORDERED: diphenhydrAMINE 50 mg/ml inj IV ONE (22:35)
[2022-05-10] MEDS ORDERED: normal saline 1000ML IV soln IVB ONE (22:35)
[2022-05-10] MEDS ORDERED: dicyclomine 10mg/ml 2ml ampule IM ONE (22:45)
[2022-05-10] MEDS ORDERED: ondansetron/PF 4mg/2ml inj IV ONE (22:45)
[2022-05-10 23:30] LABS: ANION GAP 21 (8-16); BLOOD UREA NITROGEN 12 MG/DL (7-18); CHLORIDE 94 MMOL/L (99-107); GLUCOSE 341 MG/DL (70-104); POTASSIUM 3.9 MMOL/L (3.5-5.1); SODIUM 134 MMOL/L (135-145); TOTAL CARBON DIOXIDE 19.2 MMOL/L (24-32)
[2022-05-10 23:31] LABS: ALANINE AMINOTRANSFERASE 33 U/L (12-78); ALBUMIN 4.6 G/DL (3.4-5.0); ALKALINE PHOSPHATASE 129 IU/L (46-116); ASPARTATE AMINO TRANSFERASE 24 U/L (10-37); BILIRUBIN,TOTAL 0.8 MG/DL (0.1-1.0); CALCIUM 9.6 MG/DL (8.5-10.1); CREATININE 1.09 MG/DL (0.40-0.90); LIPASE < 50 U/L (73-393); eGFR 54 ML/MIN
[2022-05-10] MEDS ORDERED: insulin regular, human 10 units/0.1 ml syringe IV ONE (23:50)
[2022-05-11 00:15] LABS: ABG HCO3 15.6 mmol/L (22.0-26.0); ABG OXYGEN SATURATION 93.1 % (94-97); ABG PCO2 (T) 30.2 mmHg (32.0-45.0); ABG PO2 (T) 83.3 mmHg (75.0-100.0); FCOHb 0.3 % (0.0-3.9); FMetHb 0.2 % (0.0-1.5); FO2Hb 92.6 % (94-97)
[2022-05-11] MEDS ORDERED: insulin regular, human 10 units/0.1 ml syringe IV ONE ×2 (01:25→02:35)
[2022-05-11] MEDS ORDERED: proCHLORperazine 10 MG/2 ml inj IV ONE (03:45)
[2022-05-11] MEDS ORDERED: normal saline 1000ML IV soln IVB ONE (03:50)
[2022-05-11 05:17] LABS: ALANINE AMINOTRANSFERASE 24 U/L (12-78); ALBUMIN 3.2 G/DL (3.4-5.0); ALBUMIN/GLOBULIN RATIO 1.1 (1.1-1.5); ALKALINE PHOSPHATASE 91 IU/L (46-116); ANION GAP 11 (8-16); ASPARTATE AMINO TRANSFERASE 15 U/L (10-37); BILIRUBIN,TOTAL 0.4 MG/DL (0.1-1.0); BLOOD UREA NITROGEN 11 MG/DL (7-18); BUN/CREATININE RATIO 14.7 (6.6-38.0); CALCIUM 7.7 MG/DL (8.5-10.1); CHLORIDE 109 MMOL/L (99-107); CREATININE 0.75 MG/DL (0.40-0.90); GLUCOSE 77 MG/DL (70-104); SODIUM 141 MMOL/L (135-145); TOTAL CARBON DIOXIDE 21.5 MMOL/L (24-32); TOTAL PROTEIN 6.2 G/DL (6.4-8.2); eGFR 83 ML/MIN
[2022-05-11 05:21] LABS: POTASSIUM 2.9 MMOL/L (3.5-5.1)
[2022-05-11] MEDS ORDERED: potassium Cl 20 mEq SR tablet PO STA (05:22)
[2022-05-11] MEDS ORDERED: POTASSIUM BICARB 20meq eff tab 20 MEQ TABLET.EFF PO ONE (05:30)
[2022-05-11] MEDS ORDERED: POTASSIUM BICARB 20meq eff tab 20 MEQ TABLET.EFF PO SCH (05:30)
[2022-05-11] MEDS ORDERED: ONDA8TAB13 PO (05:42)
--- NOTE | 2022-05-11 05:43 | NUR ---
CRITICAL K+ OF 2.9 NOTED. AWARE. ORDERS RECIEVED
[2022-05-11 06:02] VITALS: BP 150/77
== END 2022-05-11 06:25 | disposition home or self-care (01) ==
LOC: ER 19:28
DX: E86.0 Dehydration (principal); R11.2 Nausea with vomiting, unspecified; E11.9 Type 2 diabetes mellitus without complications; E03.9 Hypothyroidism, unspecified; F31.9 Bipolar disorder, unspecified; Z90.49 Acquired absence of other specified parts of digestive tract
CPT/HCPCS: 36415; 36600; 80053; 82803; 82948; 83690; 85018; 85025; 96372; 96374; 96375; 96376; 99285; J0500; J0780; J1200; J1815; J2405; J2765; J7030

== ENCOUNTER 2022-06-26 09:22 | Inpatient (IN) | payer MEDICAID ==
[~2022-06-26] VITALS: Ht 170.2 cm; Wt 84.1 kg
[~2022-06-26 09:22] MED LIST changes: +ONDA8TAB13 PO
[2022-06-26 11:38] LABS: BASOPHILS % (AUTO) 0.2 % (0-1); EOSINOPHILS % (AUTO) 0.1 % (0-6); HEMATOCRIT 49.2 % (35.0-45.0); HEMOGLOBIN 16.3 g/dl (12.0-16.0); LYMPHOCYTES # (AUTO) 1.3 X10'3 (1.1-4.8); LYMPHOCYTES % (AUTO) 10.2 % (21-51); MEAN CORPUSCULAR HEMOGLOBIN 31.9 PG (27.0-31.0); MEAN CORPUSCULAR VOLUME 96.6 FL (78-98); MEAN PLATELET VOLUME 7.4 FL (7.4-10.4); MONOCYTES # (AUTO) 0.3 X10'3 (0-0.9); MONOCYTES % (AUTO) 2.2 % (2-12); NEUTROPHILS % (AUTO) 87.3 % (42-75); PLATELET COUNT 319 X10'3 (140-440); RED CELL DISTRIBUTION WIDTH 13.1 % (11.5-14.5); WHITE BLOOD COUNT 12.6 X10'3 (4.5-11.0)
[2022-06-26 11:56] LABS: ALANINE AMINOTRANSFERASE 33 U/L (12-78); ALBUMIN 4.8 G/DL (3.4-5.0); ALBUMIN/GLOBULIN RATIO 1.1 (1.1-1.5); ALKALINE PHOSPHATASE 131 IU/L (46-116); ANION GAP 18 (8-16); ASPARTATE AMINO TRANSFERASE 22 U/L (10-37); BILIRUBIN,TOTAL 0.8 MG/DL (0.1-1.0); BLOOD UREA NITROGEN 24 MG/DL (7-18); BUN/CREATININE RATIO 23.1 (6.6-38.0); CALCIUM 9.9 MG/DL (8.5-10.1); CHLORIDE 93 MMOL/L (99-107); CREATININE 1.04 MG/DL (0.40-0.90); GLUCOSE 405 MG/DL (70-104); LIPASE < 50 U/L (73-393); POTASSIUM 4.5 MMOL/L (3.5-5.1); SODIUM 131 MMOL/L (135-145); TOTAL CARBON DIOXIDE 19.9 MMOL/L (24-32); TOTAL PROTEIN 9.2 G/DL (6.4-8.2); eGFR 57 ML/MIN
[2022-06-26] MEDS ORDERED: potassium CL 20mEq in D5-1/2NS 1,000 ML IV PRN (19:10)
[2022-06-26] MEDS: Insulin Reg/NS 100units/100mL 100 ML IV SCH (19:10)
[2022-06-26] MEDS: normal saline 1000ml 1,000 ML IV SCH ×3 (19:10→23:56)
[2022-06-26] MEDS ORDERED: metoclopramide 5 mg/ml inj IV ONE (19:10)
[2022-06-26 19:42] LABS: PHOSPHORUS 2.6 MG/DL (2.3-4.5)
[2022-06-26] MEDS: insulin regular, human U-100 3ml vial - multi-dose IV PRN (20:07)
[2022-06-26] MEDS ORDERED: acetaminophen 325mg tablet PO ONE (20:30)
[2022-06-26] MEDS ORDERED: normal saline 1000ML IV soln IVB ONE (22:30)
[2022-06-26] MEDS ORDERED: normal saline 1000ml 1,000 ML IV SCH (22:35)
[2022-06-26] MEDS ORDERED: ondansetron/PF 4mg/2ml inj IV PRN (22:35)
[2022-06-26] MEDS ORDERED: acetaminophen 325mg tablet PO PRN ×2 (22:35)
[2022-06-26] MEDS ORDERED: glucagon, human recombinant 1mg kit SUBCUT PRN (22:35)
[2022-06-26] MEDS ORDERED: insulin Lispro (HumaLOG) vial - multi-dose SQ SCH (22:35)
[2022-06-26] MEDS ORDERED: magnesium 4gm in 100ml NS 100 ML IV PRN (22:35)
[2022-06-26] MEDS ORDERED: dextrose 50%-water 50ml dispensing syringe IV PRN ×2 (22:35)
[2022-06-26] MEDS ORDERED: MESSAGE TO PHARMACY PO ONE (22:35)
[2022-06-26] MEDS ORDERED: DEXTROSE 15 GM of carb/4 tabs (each vial/BOTTLE has 4 tablets) PO PRN ×2 (22:35)
[2022-06-26] MEDS ORDERED: magnesium Cl slow-release 64mg tablet PO PRN (22:35)
[2022-06-26] MEDS ORDERED: morphine 2 MG/ML inj. syringe IV PRN (22:35)
[2022-06-26] MEDS ORDERED: potassium Cl 40MEQ/1/2NS 520ml 520 ML IV PRN (22:35)
[2022-06-26] MEDS ORDERED: potassium Cl 20 mEq SR tablet PO PRN ×2 (22:35)
[2022-06-26] MEDS ORDERED: CefTRIAXone 2gm/D5W 50ml BAG 50 ML IV ONE (22:40)
[2022-06-26] MEDS ORDERED: SEMA0.25 SQ (23:46)
[2022-06-26] MEDS ORDERED: FOLI1TAB27 PO (23:46)
[2022-06-26] MEDS ORDERED: ROPI0.2540 PO (23:46)
[2022-06-26] MEDS ORDERED: INSU100I9 SQ (23:46)
[2022-06-26] MEDS ORDERED: IBUP-1986 PO (23:46)
[2022-06-26] MEDS ORDERED: INSU100I31 SQ (23:46)
[2022-06-26] MEDS ORDERED: LISI20TA28 PO (23:50)
[2022-06-27 01:01] LABS: URINE HCG NEGATIVE (NEG)
[2022-06-27 01:04] LABS: COLOR,URINE YELLOW (Yellow); GLUCOSE, URINE >=1000 mg/dl (Neg); KETONES,URINE >=80 mg/dl (Neg); LEUKOCYTE ESTERASE ,URINE NEGATIVE (Neg); NITRITES, URINE NEGATIVE (Neg); OCCULT BLOOD,URINE SMALL (Neg); PROTEIN,URINE 30 mg/dl (Neg); UROBILINOGEN,URINE 0.2 E.U/dL (0.2-1.0)
[2022-06-27 01:18] LABS: UA COLLECTION TYPE CLN CATCH MIDSTREAM
[2022-06-27 01:19] LABS: CLARITY,URINE SLIGHTLY CLOUDY (Clear)
[2022-06-27 01:22] LABS: BACTERIA,URINE 1+ /HPF (Neg); SQUAMOUS EPITHELIAL CELL,UR MODERATE /LPF (FEW); WBC,URINE 0-4 /HPF (0-4)
[2022-06-27 01:23] LABS: AMORPHOUS URATES 1+; YEAST FEW /HPF (NEGATIVE)
[2022-06-27 01:39] LABS: URINE AMPHETAMINE SCREEN NEGATIVE (Neg); URINE BARBITUATE SCREEN NEGATIVE (Neg); URINE BENZODIAZEPINES SCREEN NEGATIVE (Neg); URINE CANNABINOID SCREEN NEGATIVE (Neg); URINE COCAINE SCREEN NEGATIVE (Neg); URINE METHADONE SCREEN NEGATIVE (Neg); URINE OPIATE SCREEN NEGATIVE (Neg); URINE PHENCYCLIDINE SCREEN NEGATIVE (Neg)
[2022-06-27 03:18] LABS: BASOPHILS % (AUTO) 0.1 % (0-1); EOSINOPHILS % (AUTO) 0 % (0-6); HEMATOCRIT 38.2 % (35.0-45.0); HEMOGLOBIN 12.2 g/dl (12.0-16.0); LYMPHOCYTES # (AUTO) 0.9 X10'3 (1.1-4.8); MEAN CORPUSCULAR HEMOGLOBIN 31.5 PG (27.0-31.0); MEAN CORPUSCULAR HGB CONC 31.9 g/dL (33.0-36.5); MEAN CORPUSCULAR VOLUME 98.9 FL (78-98); MEAN PLATELET VOLUME 7.7 FL (7.4-10.4); MONOCYTES # (AUTO) 1.3 X10'3 (0-0.9); MONOCYTES % (AUTO) 6.2 % (2-12); NEUTROPHILS # (AUTO) 19.4 X10'3 (1.8-7.7); NEUTROPHILS % (AUTO) 89.7 % (42-75); PLATELET COUNT 310 X10'3 (140-440); RED BLOOD COUNT 3.86 X10'6 (4.20-5.60); RED CELL DISTRIBUTION WIDTH 13.3 % (11.5-14.5); WHITE BLOOD COUNT 21.7 X10'3 (4.5-11.0)
[2022-06-27 03:35] LABS: ALANINE AMINOTRANSFERASE 23 U/L (12-78); ALBUMIN 3.8 G/DL (3.4-5.0); ALBUMIN/GLOBULIN RATIO 1.1 (1.1-1.5); ALKALINE PHOSPHATASE 103 IU/L (46-116); ANION GAP 26 (8-16); ASPARTATE AMINO TRANSFERASE 16 U/L (10-37); BILIRUBIN,TOTAL 0.7 MG/DL (0.1-1.0); BLOOD UREA NITROGEN 24 MG/DL (7-18); CALCIUM 8.9 MG/DL (8.5-10.1); CHLORIDE 90 MMOL/L (99-107); CREATININE 1.26 MG/DL (0.40-0.90); GLUCOSE 418 MG/DL (70-104); POTASSIUM 4.9 MMOL/L (3.5-5.1); SODIUM 126 MMOL/L (135-145); TOTAL PROTEIN 7.2 G/DL (6.4-8.2); eGFR 46 ML/MIN
--- NOTE | 2022-06-27 04:36 | NUR ---
blood glucose 371
[2022-06-27] MEDS: Insulin Reg/NS 100units/100mL 100 ML IV SCH (05:31)
[2022-06-27] MEDS: insulin regular, human U-100 3ml vial - multi-dose IV PRN (05:37)
[2022-06-27] MEDS: normal saline 1000ml 1,000 ML IV SCH ×5 (07:00→22:47)
[2022-06-27] MEDS ORDERED: pantoprazole 40mg Tablet.DR PO SCH (08:00)
[2022-06-27 08:02] LABS: ABG BASE EXCESS -16.9 mmol/L (-2.0-2.0); ABG OXYGEN SATURATION 96.2 % (94-97); ABG PCO2 (T) 22.7 mmHg (32.0-45.0); ABG PO2 (T) 101.8 mmHg (75.0-100.0); ALLEN'S TEST POSITIVE; FCOHb 0.3 % (0.0-3.9); FMetHb 0.3 % (0.0-1.5); FO2Hb 95.6 % (94-97); TOTAL HEMOGLOBIN 12.1 G/dl (12.0-16.0)
[2022-06-27] MEDS: heparin, porcine 5000 units/ml vial SQ SCH (10:24)
[2022-06-27] MEDS: duloxetine 30mg CAPSULE.DR PO SCH ×2 (10:24→20:00)
[2022-06-27] MEDS: folic acid 1mg tablet PO SCH (10:25)
[2022-06-27] MEDS: lisinopril 20mg tablet PO SCH (10:25)
[2022-06-27] MEDS: levoTHYROXINE 88mcg tablet PO SCH (10:25)
[2022-06-27] MEDS: ferrous sulfate 325mg tablet PO SCH (10:26)
[2022-06-27] MEDS: lamoTRIgine 100mg tablet PO SCH (10:26)
[2022-06-27] MEDS: K and/or MAG REPLACEMENT MC SCH (10:33)
[2022-06-27] MEDS: piperacillin/tazo 3.375gm/50ml 50 ML IV SCH ×2 (12:34→17:10)
[2022-06-27] MEDS: potassium CL 20mEq in D5-1/2NS 1,000 ML IV SCH ×2 (13:12→21:58)
[2022-06-27 16:23] LABS: BASOPHILS # (AUTO) 0.1 X10'3 (0-0.2); BASOPHILS % (AUTO) 0.5 % (0-1); EOSINOPHILS % (AUTO) 0 % (0-6); HEMOGLOBIN 12.1 g/dl (12.0-16.0); LYMPHOCYTES # (AUTO) 1.4 X10'3 (1.1-4.8); LYMPHOCYTES % (AUTO) 8.3 % (21-51); MEAN CORPUSCULAR HEMOGLOBIN 32.3 PG (27.0-31.0); MEAN CORPUSCULAR HGB CONC 33.7 g/dL (33.0-36.5); MEAN CORPUSCULAR VOLUME 95.8 FL (78-98); MEAN PLATELET VOLUME 7.2 FL (7.4-10.4); MONOCYTES # (AUTO) 1.1 X10'3 (0-0.9); MONOCYTES % (AUTO) 6.3 % (2-12); NEUTROPHILS # (AUTO) 14.7 X10'3 (1.8-7.7); NEUTROPHILS % (AUTO) 84.9 % (42-75); PLATELET COUNT 270 X10'3 (140-440); RED BLOOD COUNT 3.76 X10'6 (4.20-5.60); RED CELL DISTRIBUTION WIDTH 13.1 % (11.5-14.5); WHITE BLOOD COUNT 17.4 X10'3 (4.5-11.0)
[2022-06-27 16:36] LABS: ALANINE AMINOTRANSFERASE 24 U/L (12-78); ALBUMIN 3.6 G/DL (3.4-5.0); ALBUMIN/GLOBULIN RATIO 1.1 (1.1-1.5); ALKALINE PHOSPHATASE 97 IU/L (46-116); ANION GAP 14 (8-16); ASPARTATE AMINO TRANSFERASE 17 U/L (10-37); BILIRUBIN,TOTAL 0.5 MG/DL (0.1-1.0); BLOOD UREA NITROGEN 23 MG/DL (7-18); BUN/CREATININE RATIO 18.9 (6.6-38.0); CHLORIDE 98 MMOL/L (99-107); CREATININE 1.22 MG/DL (0.40-0.90); GLUCOSE 204 MG/DL (70-104); MAGNESIUM 1.8 MG/DL (1.5-2.4); SODIUM 131 MMOL/L (135-145); eGFR 47 ML/MIN
[2022-06-27] MEDS ORDERED: DEXTROSE 15 GM of carb/4 tabs (each vial/BOTTLE has 4 tablets) PO PRN ×2 (17:40)
[2022-06-27] MEDS ORDERED: normal saline 1000ml 1,000 ML IV SCH (17:40)
[2022-06-27] MEDS ORDERED: glucagon, human recombinant 1mg kit SUBCUT PRN (17:40)
[2022-06-27] MEDS ORDERED: dextrose 50%-water 50ml dispensing syringe IV PRN (17:40)
[2022-06-27 18:00] VITALS: BP 97/54
[2022-06-27] MEDS: morphine 2 MG/ML inj. syringe IV PRN (18:20)
[2022-06-27] MEDS: dextrose 50%-water 50ml dispensing syringe IV PRN ×2 (19:12→21:19)
[2022-06-27] MEDS ORDERED: insulin glargine (Lantus) pen - multi-dose SQ SCH (21:00)
[2022-06-27] MEDS: insulin glargine (Lantus) pen - multi-dose SQ SCH (21:00)
--- NOTE | 2022-06-27 21:25 | NUR ---
Pt wanted blood sugar checked. BS 28. D50 given by CAMILA Lucero. Pt given snack. Will recheck. Addendum: 06/27/22 at 2148 by Kaylin Melgar RN Called and spoke with Dr. Joseph in regards to reporting BS 28 and recheck of 114. Updated on pt's status. to put in new order of fluids and dc previous one. See charting for details.
[2022-06-27 22:00] VITALS: BP 101/66
[2022-06-28] MEDS: piperacillin/tazo 3.375gm/50ml 50 ML IV SCH ×3 (00:56→16:19)
[2022-06-28] MEDS: ROPINIRole 0.25mg tablet PO SCH ×2 (00:56→20:24)
[2022-06-28] MEDS: ferrous sulfate 325mg tablet PO SCH ×3 (00:56→20:24)
[2022-06-28] MEDS: morphine 2 MG/ML inj. syringe IV PRN ×2 (00:57→20:23)
[2022-06-28] MEDS: heparin, porcine 5000 units/ml vial SQ SCH ×3 (00:58→20:24)
[2022-06-28] MEDS ORDERED: duloxetine 30mg CAPSULE.DR PO SCH (02:16)
[2022-06-28 03:16] VITALS: BP 121/83
[2022-06-28] MEDS: potassium CL 20mEq in D5-1/2NS 1,000 ML IV SCH ×2 (04:44→13:55)
[2022-06-28] MEDS: HYDROcodone/acetaminophen 10/325mg tab PO PRN ×5 (05:13→22:17)
[2022-06-28] MEDS: K and/or MAG REPLACEMENT MC SCH ×3 (06:28→20:00)
[2022-06-28] MEDS: normal saline 1000ml 1,000 ML IV SCH ×8 (06:29→23:47)
--- NOTE | 2022-06-28 07:01 | NUR ---
Problems reprioritized. Patient report given, questions answered & plan of care reviewed with Phil JENSEN. Drips verified. Pt resting in bed at time of handoff.
--- NOTE | 2022-06-28 07:33 | NUR ---
Overnight, blood sugar dropped twice. 1/2 amp and full amp of D50 given. Fluids started. Pt remained on room air. She voids using bedside commode. Pt got Coleman and morphine for abdominal pain. Pt still not having an appetite.
[2022-06-28 07:35] LABS: ALANINE AMINOTRANSFERASE 15 U/L (12-78); ALBUMIN 2.5 G/DL (3.4-5.0); ALBUMIN/GLOBULIN RATIO 0.8 (1.1-1.5); ALKALINE PHOSPHATASE 91 IU/L (46-116); ANION GAP 10 (8-16); ASPARTATE AMINO TRANSFERASE 17 U/L (10-37); BILIRUBIN,TOTAL 0.5 MG/DL (0.1-1.0); BLOOD UREA NITROGEN 14 MG/DL (7-18); BUN/CREATININE RATIO 14.9 (6.6-38.0); CALCIUM 8.1 MG/DL (8.5-10.1); CHLORIDE 101 MMOL/L (99-107); CREATININE 0.94 MG/DL (0.40-0.90); GLUCOSE 420 MG/DL (70-104); MAGNESIUM 1.9 MG/DL (1.5-2.4); PHOSPHORUS 2.2 MG/DL (2.3-4.5); SODIUM 129 MMOL/L (135-145); TOTAL PROTEIN 5.7 G/DL (6.4-8.2); eGFR 64 ML/MIN
[2022-06-28] MEDS: pantoprazole 40MG/NS 100ML BAG 100 ML IV SCH ×2 (09:33→20:28)
[2022-06-28] MEDS: folic acid 1mg tablet PO SCH (09:35)
[2022-06-28] MEDS: lamoTRIgine 100mg tablet PO SCH (09:36)
[2022-06-28] MEDS: duloxetine 30mg CAPSULE.DR PO SCH (09:37)
[2022-06-28] MEDS: levoTHYROXINE 88mcg tablet PO SCH (09:37)
[2022-06-28] MEDS: lisinopril 20mg tablet PO SCH (09:38)
[2022-06-28] MEDS: insulin Lispro (HumaLOG) vial - multi-dose SQ SCH ×3 (11:13→19:45)
[2022-06-28] MEDS: HYDROcodone/acetaminophen 5mg/325mg tablet PO PRN (17:51)
--- NOTE | 2022-06-28 19:30 | NUR ---
Patient in room PCU 3018. I have received report from ER and had the opportunity to ask questions and assume patient care.
[2022-06-28 20:00] VITALS: BP 104/68
[2022-06-28] MEDS ORDERED: pantoprazole 40mg IV 40 MG in normal saline 100ml IV soln 100 ML IV SCH (20:00)
[2022-06-28] MEDS: normal saline 100ml IV soln 100 ML IV SCH (20:00)
[2022-06-28 22:00] VITALS: BP 103/62
[2022-06-28] MEDS: insulin glargine (Lantus) pen - multi-dose SQ SCH (22:22)
[2022-06-29] MEDS: diatr meglu/diatrizoate 30ml oral sol.-(3 dose) bottle PO SCH ×3 (00:21→09:11)
[2022-06-29] MEDS: piperacillin/tazo 3.375gm/50ml 50 ML IV SCH ×3 (00:21→16:41)
[2022-06-29] MEDS: potassium CL 20mEq in D5-1/2NS 1,000 ML IV SCH ×2 (00:44→08:14)
[2022-06-29 02:00] VITALS: BP 126/65
[2022-06-29] MEDS: HYDROcodone/acetaminophen 10/325mg tab PO PRN ×4 (02:30→16:49)
[2022-06-29] MEDS: normal saline 1000ml 1,000 ML IV SCH ×4 (04:15→20:28)
[2022-06-29] MEDS: morphine 2 MG/ML inj. syringe IV PRN ×2 (04:25→20:19)
[2022-06-29 06:37] LABS: BASOPHILS % (AUTO) 0.1 % (0-1); EOSINOPHILS # (AUTO) 0.1 X10'3 (0-0.9); EOSINOPHILS % (AUTO) 1.2 % (0-6); HEMATOCRIT 30.9 % (35.0-45.0); HEMOGLOBIN 10.2 g/dl (12.0-16.0); LYMPHOCYTES # (AUTO) 0.8 X10'3 (1.1-4.8); LYMPHOCYTES % (AUTO) 9.1 % (21-51); MEAN CORPUSCULAR HEMOGLOBIN 32.1 PG (27.0-31.0); MEAN CORPUSCULAR VOLUME 97.1 FL (78-98); MEAN PLATELET VOLUME 7.1 FL (7.4-10.4); MONOCYTES # (AUTO) 0.4 X10'3 (0-0.9); MONOCYTES % (AUTO) 4.9 % (2-12); NEUTROPHILS # (AUTO) 7.5 X10'3 (1.8-7.7); NEUTROPHILS % (AUTO) 84.7 % (42-75); PLATELET COUNT 174 X10'3 (140-440); RED BLOOD COUNT 3.18 X10'6 (4.20-5.60); RED CELL DISTRIBUTION WIDTH 13.5 % (11.5-14.5); WHITE BLOOD COUNT 8.8 X10'3 (4.5-11.0)
[2022-06-29 06:43] LABS: ALANINE AMINOTRANSFERASE 18 U/L (12-78); ALBUMIN 2.3 G/DL (3.4-5.0); ALBUMIN/GLOBULIN RATIO 0.7 (1.1-1.5); ALKALINE PHOSPHATASE 92 IU/L (46-116); ANION GAP 7 (8-16); ASPARTATE AMINO TRANSFERASE 19 U/L (10-37); BILIRUBIN,TOTAL 0.4 MG/DL (0.1-1.0); BLOOD UREA NITROGEN 8 MG/DL (7-18); BUN/CREATININE RATIO 11.6 (6.6-38.0); CHLORIDE 104 MMOL/L (99-107); CREATININE 0.69 MG/DL (0.40-0.90); GLUCOSE 200 MG/DL (70-104); MAGNESIUM 1.9 MG/DL (1.5-2.4); PHOSPHORUS 2.2 MG/DL (2.3-4.5); POTASSIUM 3.7 MMOL/L (3.5-5.1); SODIUM 133 MMOL/L (135-145); TOTAL CARBON DIOXIDE 21.6 MMOL/L (24-32); TOTAL PROTEIN 5.7 G/DL (6.4-8.2); eGFR > 90 ML/MIN
--- NOTE | 2022-06-29 06:58 | NUR ---
Problems reprioritized. Patient report given, questions answered & plan of care reviewed with Evelina Rutledge.
[2022-06-29 07:00] VITALS: BP 115/68
[2022-06-29] MEDS: K and/or MAG REPLACEMENT MC SCH ×2 (08:00→20:00)
[2022-06-29] MEDS: normal saline 100ml IV soln 100 ML IV SCH (08:00)
[2022-06-29] MEDS: duloxetine 30mg CAPSULE.DR PO SCH (08:13)
[2022-06-29] MEDS: folic acid 1mg tablet PO SCH (08:13)
[2022-06-29] MEDS: ferrous sulfate 325mg tablet PO SCH (08:13)
[2022-06-29] MEDS: heparin, porcine 5000 units/ml vial SQ SCH (08:14)
[2022-06-29] MEDS: lisinopril 20mg tablet PO SCH (08:14)
[2022-06-29] MEDS: levoTHYROXINE 88mcg tablet PO SCH (08:14)
[2022-06-29] MEDS: lamoTRIgine 100mg tablet PO SCH (08:15)
[2022-06-29] MEDS: insulin Lispro (HumaLOG) vial - multi-dose SQ SCH ×2 (08:16→13:41)
--- NOTE | 2022-06-29 08:40 | NUR ---
Initial: Pt admitted w/ DKA, which has been resolved now per MD note. No recent A1c in EMR, communicated w/ RN recommendation to obtain A1c if MD agreeable. Currently on Carb control diet pending PO intake. No BM documented this admit. Will continue to monitor. Recs: 1. Continue Carb control diet as tolerated 2. Bowel care per rx 3. Scaled wts 4. DM ed by RD pending A1c Addendum: 06/29/22 at [address] Amended: Links added.
[2022-06-29] MEDS ORDERED: iohexol 300mg/ml 100ml inj. ONE (09:11)
[2022-06-29 11:00] VITALS: BP 126/75
[2022-06-29] MEDS ORDERED: potassium phosphate inj 30 MMOL in normal saline 250ml IV soln 250 ML IV ONE (11:50)
--- NOTE | 2022-06-29 13:21 | NUR ---
page to Dr. Arreaga Accepted promotional table spacer Message: [phone] Foster. Please call radiology at [phone] for critical results. Harper @ [phone] Custom Responses: promotional table spacer Transaction number: [id number]
--- NOTE | 2022-06-29 13:48 | NUR ---
[address]nd page to Dr. Arreaga Page Accepted promotional table spacer Message: [phone] Clancy. Please call tele radiology for critical results @ [phone]. second call regarding this patient. [phone] Custom Responses: promotional table spacer Transaction number: [id number]
[2022-06-29 15:00] VITALS: BP 135/79
[2022-06-29 18:00] VITALS: BP 108/59
--- NOTE | 2022-06-29 18:26 | NUR ---
Problems reprioritized. Patient report given, questions answered & plan of care reviewed with Inocencia JENSEN. Per Dr. Arreaga hold all PO meds and patient should be NPO. Kphos not ran today because patient had zosyn 2x and lost IV access for a couple of hours today. NOC RN notified.
[2022-06-29] MEDS ORDERED: morphine 2 MG/ML inj. syringe IV PRN (19:45)
[2022-06-29] MEDS: pantoprazole 40MG/NS 100ML BAG 100 ML IV SCH (20:12)
[2022-06-29] MEDS: insulin glargine (Lantus) pen - multi-dose SQ SCH (20:29)
[2022-06-29] MEDS ORDERED: pantoprazole 40MG/NS 100ML BAG 100 ML IV SCH (21:00)
[2022-06-29 21:59] VITALS: BP 139/81
[2022-06-30] MEDS: pantoprazole 40MG/NS 100ML BAG 100 ML IV SCH ×5 (00:24→20:42)
[2022-06-30] MEDS: piperacillin/tazo 3.375gm/50ml 50 ML IV SCH ×4 (00:24→23:09)
[2022-06-30] MEDS: morphine 2 MG/ML inj. syringe IV PRN ×6 (00:25→23:08)
[2022-06-30] MEDS: normal saline 1000ml 1,000 ML IV SCH ×2 (04:50→16:42)
--- NOTE | 2022-06-30 06:37 | NUR ---
Patient in room U 3018. I have received report from Inocencia JENSEN and had the opportunity to ask questions and assume patient care. Patient resting in bed in no acute distress.
--- NOTE | 2022-06-30 06:39 | NUR ---
Patient in room PCU 3018. I have received report from Inocencia JENSEN and had the opportunity to ask questions and assume patient care.
[2022-06-30 07:00] VITALS: BP 136/87
[2022-06-30 07:31] LABS: BASOPHILS % (AUTO) 0.3 % (0-1); EOSINOPHILS % (AUTO) 1.1 % (0-6); HEMATOCRIT 28.7 % (35.0-45.0); HEMOGLOBIN 9.7 g/dl (12.0-16.0); LYMPHOCYTES # (AUTO) 0.5 X10'3 (1.1-4.8); LYMPHOCYTES % (AUTO) 13.6 % (21-51); MEAN CORPUSCULAR HEMOGLOBIN 32.6 PG (27.0-31.0); MEAN CORPUSCULAR HGB CONC 33.8 g/dL (33.0-36.5); MEAN CORPUSCULAR VOLUME 96.4 FL (78-98); MEAN PLATELET VOLUME 6.9 FL (7.4-10.4); MONOCYTES # (AUTO) 0.2 X10'3 (0-0.9); MONOCYTES % (AUTO) 5.7 % (2-12); NEUTROPHILS # (AUTO) 3.1 X10'3 (1.8-7.7); NEUTROPHILS % (AUTO) 79.3 % (42-75); PLATELET COUNT 193 X10'3 (140-440); RED BLOOD COUNT 2.97 X10'6 (4.20-5.60); WHITE BLOOD COUNT 3.9 X10'3 (4.5-11.0)
[2022-06-30 07:42] LABS: ALANINE AMINOTRANSFERASE 15 U/L (12-78); ALBUMIN 2.1 G/DL (3.4-5.0); ALBUMIN/GLOBULIN RATIO 0.6 (1.1-1.5); ALKALINE PHOSPHATASE 90 IU/L (46-116); ANION GAP 9 (8-16); ASPARTATE AMINO TRANSFERASE 11 U/L (10-37); BILIRUBIN,TOTAL 0.3 MG/DL (0.1-1.0); BLOOD UREA NITROGEN 3 MG/DL (7-18); CALCIUM 7.7 MG/DL (8.5-10.1); CHLORIDE 105 MMOL/L (99-107); GLUCOSE 167 MG/DL (70-104); MAGNESIUM 1.8 MG/DL (1.5-2.4); POTASSIUM 3.4 MMOL/L (3.5-5.1); SODIUM 138 MMOL/L (135-145); TOTAL CARBON DIOXIDE 24.4 MMOL/L (24-32); TOTAL PROTEIN 5.5 G/DL (6.4-8.2); eGFR > 90 ML/MIN
--- NOTE | 2022-06-30 07:46 | NUR ---
Page Accepted promotional table spacer Message: [phone] Tony. PO meds on hold overnight. Do you still want her strict npo this morning and to continue holding all po meds today? Harper @[phone] Custom Responses: promotional table spacer Transaction number: [id number]
[2022-06-30] MEDS: lamoTRIgine 100mg tablet PO SCH (08:00)
[2022-06-30] MEDS: pantoprazole 40mg Tablet.DR PO SCH (08:00)
[2022-06-30] MEDS: ferrous sulfate 325mg tablet PO SCH (08:00)
[2022-06-30] MEDS: duloxetine 30mg CAPSULE.DR PO SCH (08:00)
[2022-06-30] MEDS: levoTHYROXINE 88mcg tablet PO SCH (08:00)
[2022-06-30] MEDS: K and/or MAG REPLACEMENT MC SCH ×2 (08:00→20:00)
[2022-06-30] MEDS: folic acid 1mg tablet PO SCH (08:00)
[2022-06-30] MEDS: lisinopril 20mg tablet PO SCH (08:00)
[2022-06-30] MEDS: insulin Lispro (HumaLOG) vial - multi-dose SQ SCH ×3 (08:04→20:41)
[2022-06-30 08:06] LABS: HEMOGLOBIN A1C 7.3 % (4.5-6.2)
[2022-06-30 11:00] VITALS: BP 156/88
[2022-06-30] MEDS: levoTHYROXINE sod inj. 100mcg/5 ml vial IV SCH (11:15)
[2022-06-30 15:00] VITALS: BP 166/85
--- NOTE | 2022-06-30 15:57 | NUR ---
page to Dr. Arreaga Page Accepted promotional table spacer Message: [id number]. Carlisle PT BP elevated 166/85 HR 75 did you want to order PRN hydralazine? [email or web address] [place] [address] came by and said he would be unable to help her no note in chart yet. Custom Responses: promotional table spacer Transaction number: [id number]
--- NOTE | 2022-06-30 16:05 | NUR ---
Per telephone conversation with Dr. Nieves he is not going to surgically intervene and patient can be put on clear liquid diet .
[2022-06-30] MEDS ORDERED: hydrALAZINE 20mg/ml inj. IV PRN (16:10)
[2022-06-30 18:00] VITALS: BP 138/71
--- NOTE | 2022-06-30 18:11 | NUR ---
Problems reprioritized. Patient report given, questions answered & plan of care reviewed with Inocencia JENSEN. Patient resting in bed in no acute distress.
--- NOTE | 2022-06-30 20:33 | NUR ---
PER DR. HOLLIDAY, OK TO RESUME PO MEDS FROM HIS STANDPOINT
[2022-06-30] MEDS: insulin glargine (Lantus) pen - multi-dose SQ SCH (20:40)
[2022-06-30] MEDS: HYDROcodone/acetaminophen 5mg/325mg tablet PO PRN (20:46)
[2022-06-30] MEDS: temazepam 15mg capsule PO PRN (21:53)
[2022-06-30 22:00] VITALS: BP 127/47
[2022-07-01] MEDS: pantoprazole 40MG/NS 100ML BAG 100 ML IV SCH ×5 (01:00→21:09)
[2022-07-01 02:00] VITALS: BP 132/61
[2022-07-01] MEDS: normal saline 1000ml 1,000 ML IV SCH ×2 (02:28→12:28)
[2022-07-01 06:00] VITALS: BP 153/84
--- NOTE | 2022-07-01 07:05 | NUR ---
Patient in room PCU 3018. I have received report from CAMILA Pro and had the opportunity to ask questions and assume patient care.
[2022-07-01 07:38] LABS: BASOPHILS % (AUTO) 0.5 % (0-1); EOSINOPHILS # (AUTO) 0.1 X10'3 (0-0.9); EOSINOPHILS % (AUTO) 2.1 % (0-6); HEMATOCRIT 31.6 % (35.0-45.0); HEMOGLOBIN 10.6 g/dl (12.0-16.0); LYMPHOCYTES # (AUTO) 0.6 X10'3 (1.1-4.8); MEAN CORPUSCULAR HEMOGLOBIN 32.1 PG (27.0-31.0); MEAN CORPUSCULAR HGB CONC 33.6 g/dL (33.0-36.5); MEAN CORPUSCULAR VOLUME 95.5 FL (78-98); MEAN PLATELET VOLUME 6.7 FL (7.4-10.4); MONOCYTES # (AUTO) 0.3 X10'3 (0-0.9); MONOCYTES % (AUTO) 8.3 % (2-12); NEUTROPHILS # (AUTO) 2.4 X10'3 (1.8-7.7); NEUTROPHILS % (AUTO) 71.1 % (42-75); PLATELET COUNT 221 X10'3 (140-440); RED BLOOD COUNT 3.31 X10'6 (4.20-5.60); RED CELL DISTRIBUTION WIDTH 13.2 % (11.5-14.5); WHITE BLOOD COUNT 3.4 X10'3 (4.5-11.0)
[2022-07-01] MEDS: piperacillin/tazo 3.375gm/50ml 50 ML IV SCH ×2 (07:45→16:22)
[2022-07-01] MEDS: levoTHYROXINE 88mcg tablet PO SCH (07:46)
[2022-07-01] MEDS: HYDROcodone/acetaminophen 10/325mg tab PO PRN ×3 (07:46→17:43)
[2022-07-01] MEDS: folic acid 1mg tablet PO SCH (07:46)
[2022-07-01] MEDS: lamoTRIgine 100mg tablet PO SCH (07:47)
[2022-07-01] MEDS: lisinopril 20mg tablet PO SCH (07:47)
[2022-07-01] MEDS: ferrous sulfate 325mg tablet PO SCH ×2 (07:48→21:09)
[2022-07-01] MEDS: duloxetine 30mg CAPSULE.DR PO SCH (07:48)
[2022-07-01] MEDS: levoTHYROXINE sod inj. 100mcg/5 ml vial IV SCH (07:59)
[2022-07-01] MEDS: K and/or MAG REPLACEMENT MC SCH ×3 (07:59→20:00)
[2022-07-01 08:06] LABS: ALANINE AMINOTRANSFERASE 15 U/L (12-78); ALBUMIN 2.1 G/DL (3.4-5.0); ALBUMIN/GLOBULIN RATIO 0.6 (1.1-1.5); ALKALINE PHOSPHATASE 90 IU/L (46-116); ANION GAP 8 (8-16); ASPARTATE AMINO TRANSFERASE 12 U/L (10-37); BILIRUBIN,TOTAL 0.3 MG/DL (0.1-1.0); BLOOD UREA NITROGEN 2 MG/DL (7-18); BUN/CREATININE RATIO 3.1 (6.6-38.0); CALCIUM 8.1 MG/DL (8.5-10.1); CHLORIDE 106 MMOL/L (99-107); CREATININE 0.65 MG/DL (0.40-0.90); GLUCOSE 247 MG/DL (70-104); MAGNESIUM 1.7 MG/DL (1.5-2.4); PHOSPHORUS 2.5 MG/DL (2.3-4.5); POTASSIUM 3.3 MMOL/L (3.5-5.1); SODIUM 139 MMOL/L (135-145); TOTAL CARBON DIOXIDE 25.4 MMOL/L (24-32); TOTAL PROTEIN 5.6 G/DL (6.4-8.2); eGFR > 90 ML/MIN
[2022-07-01] MEDS: insulin Lispro (HumaLOG) vial - multi-dose SQ SCH ×2 (09:09→13:32)
[2022-07-01 11:00] VITALS: BP 141/80
[2022-07-01] MEDS: morphine 2 MG/ML inj. syringe IV PRN (11:00)
--- NOTE | 2022-07-01 14:00 | NUR ---
DM Consult: Pt A1C results 7.3% per EMR. Pt seen by RD for written/verbal DM diet ed w/ RD contact information provided. Pt reports is living in half-way currently and for next ~3 months where all meals are standard and not specific for diabetics. Pt reports attempts to portion carb options at meals and focus on proteins but sometimes has to dose herself w/ insulin based on carbs she thinks she will consume given hx elliott-en-y. Pt reports not fully confident on insulin dosage at mealtimes as well since she's not full sure of carbs consumed. Per pt, currently attempting to establish further help including RD w/ goal of obtaining insulin pump. RD encouraged pt to f/u w/ PCP regarding insulin dosage training and diabetic education specialists. RD also encouraged pt to f/u w/ PCP regarding bariatric MVI given elliott-en-y hx; currently takes routine OTC MVI per pt. RD reviewed carb portions sizing at mealtimes, appropriate snack options, and encouraged pt to contact dietitian's office if further questions/concerns. Addendum: 07/01/22 at [address] Amended: Links added.
[2022-07-01 15:00] VITALS: BP 133/83
--- NOTE | 2022-07-01 16:16 | NUR ---
Message: Lata [phone] RE: Kamilah Jimenez room 1067G -can we get the K/Mg replacement protocol orders so I can replace her K. Thank you.
[2022-07-01] MEDS ORDERED: magnesium Cl slow-release 64mg tablet PO PRN (17:55)
[2022-07-01] MEDS ORDERED: magnesium 4gm in 100ml NS 100 ML IV PRN (17:55)
[2022-07-01] MEDS ORDERED: potassium Cl 20 mEq SR tablet PO PRN (17:55)
[2022-07-01] MEDS ORDERED: potassium Cl 40MEQ/1/2NS 520ml 520 ML IV PRN (17:55)
--- NOTE | 2022-07-01 19:09 | NUR ---
Problems reprioritized. Patient report given, questions answered & plan of care reviewed with CAMILA Pro.
[2022-07-01 19:35] VITALS: BP 156/94
[2022-07-01] MEDS: insulin glargine (Lantus) pen - multi-dose SQ SCH (21:00)
[2022-07-01] MEDS: ROPINIRole 0.25mg tablet PO SCH (21:09)
[2022-07-01] MEDS: temazepam 15mg capsule PO PRN (21:09)
[2022-07-01] MEDS: potassium Cl 20 mEq SR tablet PO PRN (21:18)
[2022-07-01 21:50] VITALS: BP 146/77
[2022-07-01] MEDS: HYDROcodone/acetaminophen 5mg/325mg tablet PO PRN (22:50)
[2022-07-02] MEDS: piperacillin/tazo 3.375gm/50ml 50 ML IV SCH ×3 (00:57→16:00)
[2022-07-02] MEDS: pantoprazole 40MG/NS 100ML BAG 100 ML IV SCH ×4 (00:57→16:00)
[2022-07-02] MEDS: potassium Cl 20 mEq SR tablet PO PRN ×3 (00:57→14:26)
[2022-07-02] MEDS: normal saline 1000ml 1,000 ML IV SCH ×2 (00:57→08:28)
[2022-07-02 02:00] VITALS: BP 136/69
[2022-07-02 06:00] VITALS: BP 154/87
--- NOTE | 2022-07-02 06:27 | NUR ---
Patient in room PCU 3018. I have received report from CAMILA Pro and had the opportunity to ask questions and assume patient care.
[2022-07-02 06:29] LABS: ALANINE AMINOTRANSFERASE 11 U/L (12-78); ALBUMIN/GLOBULIN RATIO 0.6 (1.1-1.5); ALKALINE PHOSPHATASE 80 IU/L (46-116); ANION GAP 5 (8-16); ASPARTATE AMINO TRANSFERASE 11 U/L (10-37); BILIRUBIN,TOTAL 0.2 MG/DL (0.1-1.0); BLOOD UREA NITROGEN 1 MG/DL (7-18); BUN/CREATININE RATIO 1.5 (6.6-38.0); CALCIUM 8.1 MG/DL (8.5-10.1); CHLORIDE 108 MMOL/L (99-107); CREATININE 0.68 MG/DL (0.40-0.90); GLUCOSE 215 MG/DL (70-104); MAGNESIUM 1.6 MG/DL (1.5-2.4); PHOSPHORUS 3.3 MG/DL (2.3-4.5); POTASSIUM 3.4 MMOL/L (3.5-5.1); SODIUM 140 MMOL/L (135-145); TOTAL CARBON DIOXIDE 27.3 MMOL/L (24-32); TOTAL PROTEIN 5.3 G/DL (6.4-8.2); eGFR > 90 ML/MIN
--- NOTE | 2022-07-02 07:10 | NUR ---
Both PIV are currently out/not working. Paged PICC nurse as patient is a hard stick.
[2022-07-02] MEDS: levoTHYROXINE 88mcg tablet PO SCH (07:34)
[2022-07-02] MEDS: ferrous sulfate 325mg tablet PO SCH (07:34)
[2022-07-02] MEDS: lamoTRIgine 100mg tablet PO SCH (07:34)
[2022-07-02] MEDS: duloxetine 30mg CAPSULE.DR PO SCH (07:34)
[2022-07-02] MEDS: lisinopril 20mg tablet PO SCH (07:35)
[2022-07-02] MEDS: pantoprazole 40mg Tablet.DR PO SCH (07:35)
[2022-07-02] MEDS: HYDROcodone/acetaminophen 10/325mg tab PO PRN ×2 (07:35→11:21)
[2022-07-02] MEDS: folic acid 1mg tablet PO SCH (07:35)
[2022-07-02] MEDS: K and/or MAG REPLACEMENT MC SCH ×2 (07:36)
[2022-07-02] MEDS: levoTHYROXINE sod inj. 100mcg/5 ml vial IV SCH (07:36)
[2022-07-02] MEDS: insulin Lispro (HumaLOG) vial - multi-dose SQ SCH ×2 (09:36→14:25)
[2022-07-02] MEDS ORDERED: LACT1CAP26 PO (10:38)
[2022-07-02] MEDS ORDERED: HYDR-3965 PO (10:38)
[2022-07-02] MEDS ORDERED: AMOX-117 PO (10:38)
[2022-07-02] MEDS ORDERED: THIA50TA10 PO (10:42)
[2022-07-02] MEDS ORDERED: MULT-1085 PO (10:43)
[2022-07-02 11:00] VITALS: BP 156/93
--- NOTE | 2022-07-02 12:53 | NUR ---
Reassessment: Pt currently on Carb control diet w/ avg intake 75-100% of meals meeting est needs at this time. LBM 06/30. No nutrition intervention implemented at this time, will continue to monitor. Recs: 1. advance to Carb control diet as tolerated 2. Bowel care per rx 3. Scaled wts Addendum: 07/02/22 at [address] Amended: Links added.
--- NOTE | 2022-07-02 17:04 | NUR ---
Patient left the floor at 1655 with instructions verbalizing understanding of instructions, in wheelchair accompanied by nursing staff going home via private vehicle. All lines and tubes including PIV with cannula intact and tele monitor have been removed. Diabetic education has been provided and Diabetes Survival Skills packet has been provided as well. All questions have been answered. Patient will make her own follow up appointment with her PCP at [facility]. Patient is stable and appropriate for discharge.
== END 2022-07-02 17:11 | disposition home or self-care (01) | DRG 420 ==
LOC: ER 09:23 → ED HOLD 22:37 → UNDOADMIN 22:37 → ED HOLD 06-27 05:38 → PCU 3S 06-28 20:17
PROVIDERS: ADMIT Internal Medicine; ATTEND Family Medicine
DX: E10.10 Type 1 diabetes mellitus with ketoacidosis without coma (principal); J90 Pleural effusion, not elsewhere classified; D72.829 Elevated white blood cell count, unspecified; E03.9 Hypothyroidism, unspecified; K21.9 Gastro-esophageal reflux disease without esophagitis; F31.9 Bipolar disorder, unspecified; Z98.84 Bariatric surgery status; Z90.49 Acquired absence of other specified parts of digestive tract; Z79.890 Hormone replacement therapy
CPT/HCPCS: 36415; 36600; 71250; 73030; 74177; 80053; 80305; 80320; 81001; 81025; 82800; 82803; 82948; 83036; 83605; 83690; 83735; 84100; 84145; 84443; 85018; 85025; 87040; 87081; 96365; 96376; 99285; C9113; G0378; J0360; J0696; J1644; J1815; J2270; J2543; J2765; J3480; J3490; J7030; J7050; Q9963; Q9967